=== PATIENT | male | born 2000 | race African-American/Black ===

== ENCOUNTER 2021-09-14 15:27 | Emergency (ER) | payer MEDICAID ==
[~2021-09-14] VITALS: Ht 175.3 cm; Wt 74.0 kg
[2021-09-14 15:42] VITALS: BP 101/52
[2021-09-14] MEDS ORDERED: ACETAMINOPHEN 325MG TABLET PO NR (16:00)
[2021-09-14] MEDS ORDERED: KETOROLAC 15MG/ML VIAL IM ONE (18:15)
== END 2021-09-14 19:21 | disposition home or self-care (01) ==
LOC: ER 15:27
DX: U07.1 COVID-19 (principal)
CPT/HCPCS: 87426; 96372; 99283; C9803; J1885

== ENCOUNTER 2021-09-23 09:53 | Emergency (ER) | payer MEDICAID ==
[~2021-09-23] VITALS: Ht 172.7 cm; Wt 73.0 kg
[2021-09-23 10:09] VITALS: BP 112/81
[2021-09-23] MEDS ORDERED: SODIUM CHLORIDE 0.9% 1,000 ML IV ONE (10:45)
[2021-09-23] MEDS ORDERED: ONDANSETRON HCL 4MG/2ML INJ IV STA (10:45)
[2021-09-23 12:02] LABS: BASOPHILS % 0.7 % (0.0-2.0); EOSINOPHILS % 0.4 % (0.0-5.0); HEMATOCRIT. 52.6 % (42.0-52.0); HEMOGLOBIN. 17.8 g/dL (14.0-18.0); LYMPHOCYTES % 26.9 % (20.0-50.0); MEAN CORPUSCULAR HEMOGLOBIN 29.4 pg (28.0-32.0); MEAN CORPUSCULAR VOLUME 87.1 fL (80.0-94.0); MEAN PLATELET VOLUME 7.8 fl (7.4-10.4); MONOCYTES % 12.6 % (2.0-8.0); NEUTROPHILS % 59.4 % (40.0-76.0); PLATELET 245 x1000/uL (130-400); RED BLOOD CELL COUNT 6.04 mill/uL (4.7-6.1); RED CELL DISTRIBUTION WIDTH 13.1 % (11.6-14.6)
[2021-09-23 12:08] LABS: CLARITY URINE CLEAR (CLEAR); COLOR URINE DARK YELLOW (YELLOW); KETONES URINE 3+ (NEGATIVE); LEUKOCYTE ESTERASE URINE NEGATIVE (NEGATIVE); NITRITE URINE NEGATIVE (NEGATIVE); OCCULT BLOOD URINE NEGATIVE (NEGATIVE); PH URINE 5.5 (4.5-8.0); PROTEIN URINE 1+ (NEGATIVE); SPECIFIC GRAVITY URINE 1.037 (1.005-1.030)
[2021-09-23 12:09] LABS: CHLORIDE 108 mEq/L (98-107)
[2021-09-23 12:16] LABS: ETHANOL BLOOD < 10 mg/dL
== END 2021-09-23 13:36 | disposition left against medical advice (07) ==
LOC: ER 09:53
DX: U07.1 COVID-19 (principal); R11.2 Nausea with vomiting, unspecified; R10.816 Epigastric abdominal tenderness; F12.90 Cannabis use, unspecified, uncomplicated
CPT/HCPCS: 36415; 80053; 80320; 81003; 83690; 85025; 96361; 96374; 99283; J2405; J7030; G0480

== ENCOUNTER 2021-09-26 03:44 | Emergency (ER) | payer MEDICAID ==
[~2021-09-26] VITALS: Ht 177.8 cm; Wt 60.0 kg
[2021-09-26] MEDS ORDERED: ACETAMINOPHEN 325MG TABLET PO ONE (05:45)
[2021-09-26] MEDS ORDERED: ONDANSETRON HCL 4MG TABLET PO ONE (05:45)
[2021-09-26] MEDS ORDERED: KETOROLAC 60MG/2ML VIAL IM ONE (05:45)
[2021-09-26] MEDS ORDERED: TOPUD PO (06:40)
[2021-09-26] MEDS ORDERED: ONDA4TAB50 PO (06:40)
[2021-09-26] MEDS ORDERED: NIRM1TAB PO (07:02)
[2021-09-26] MEDS ORDERED: ACETAMINOPHEN 325MG TABLET PO SCH (07:30)
[2021-09-26] MEDS ORDERED: KETOROLAC 60MG/2ML VIAL IM SCH (07:30)
[2021-09-26] MEDS ORDERED: ONDANSETRON HCL 4MG TABLET PO SCH (07:45)
[2021-09-26 08:02] VITALS: BP 116/62
== END 2021-09-26 08:04 | disposition home or self-care (01) ==
LOC: ER 03:44
DX: U07.1 COVID-19 (principal); F12.10 Cannabis abuse, uncomplicated
CPT/HCPCS: 96372; 99283; J1885; Q0162